=== PATIENT | female | born 1960 | race Caucasian/White ===

== ENCOUNTER 2017-12-05 10:55 | Emergency (ER) | payer MEDICAID ==
[2017-12-05 11:33] VITALS: BP 196/97; PULSE 97; RESP 18; O2SAT 98
[2017-12-05] MEDS ORDERED: LEVO175T2 PO (12:02)
[2017-12-05] MEDS ORDERED: HYDR50CA PO (12:02)
[2017-12-05] MEDS ORDERED: GABA800T PO (12:02)
[2017-12-05] MEDS ORDERED: SERO100T PO (12:02)
[2017-12-05] MEDS ORDERED: IBUP1TAB7 PO (12:02)
[2017-12-05] MEDS ORDERED: SUBO8MIS SL (12:02)
[2017-12-05 14:10] VITALS: BP 178/97; PULSE 98; RESP 18; O2SAT 97
--- NOTE | 2017-12-05 14:23 | PD ---
HPI Chief Complaint: Psychiatric Symptoms Time Seen by Provider: 11:27 Travel History International Travel<30 days: No Contact w/Intl Traveler<30days: No Traveled to known affect area: No History of Present Illness HPI 57-year-old female presents to the emergency department under [place] act as a transfer from [facility]. Patient is done from [place]. She takes Suboxone for pain. She was at [facility] when they advised her they would not be giving her Suboxone refill. She may comment about wanting to kill herself if she did not get this. She states that she did not mean this seriously. She was just angry. Denies suicidal homicidal ideations. States she has history of depression. She has no other symptoms to report. [facility] Past Medical History Depression: Yes ?: Not Social History Tobacco Use: Yes Substance Use: No (Patient denies) Allergies-Medications (Allergen,Severity, Reaction): Coded Allergies: No Known Drug Allergies (Verified Allergy, Unknown, 12/05/17) Per patient Reported Meds & Prescriptions Reported Meds & Active Scripts Active Reported Gabapentin 800 Mg Tab 800 Mg PO TID Ibuprofen 800 Mg Tab 800 Mg PO TID PRN Levothyroxine (Levothyroxine Sodium) 175 Mcg Tab 175 Mcg PO DAILY Seroquel (Quetiapine Fumarate) 100 Mg Tab 100 Mg PO HS Hydroxyzine Pamoate 50 Mg Cap 50 Mg PO TID Suboxone Sublingual Film (Buprenorphine-Naloxone Sublingual Film) 8-2 Mg Film 1 Film SL Unique ID number required: Review of Systems Except as stated in HPI: all other systems reviewed are Neg Physical Exam Narrative GENERAL: Well-nourished female patient, ambulatory and in no acute distress. SKIN: Focused skin assessment warm/dry. HEAD: Atraumatic. Normocephalic. EYES: Pupils equal and round. No scleral icterus. No injection or drainage. ENT: No nasal bleeding or discharge. Mucous membranes pink and moist. NECK: Trachea midline. No JVD. CARDIOVASCULAR: Regular rate and rhythm. No murmur appreciated. RESPIRATORY: No accessory muscle use. Clear to auscultation. Breath sounds equal bilaterally. GASTROINTESTINAL: Abdomen soft, non-tender, nondistended. Hepatic and splenic margins not palpable. MUSCULOSKELETAL: No obvious deformities. No clubbing. No cyanosis. No edema. NEUROLOGICAL: Awake and alert. No obvious cranial nerve deficits. Motor grossly within normal limits. Normal speech. Data Data Last Documented VS Vital Signs Date Time Temp Pulse Resp B/P (MAP) Pulse Ox O2 Delivery O2 Flow Rate FiO2 12/06/17 10:08 111 18 156/98 (117) 97 Room Air 12/06/17 06:15 98.3 Orders Orders Psych Screen (12/05/17 11:27) Hydroxyzine Pamoate (Vistaril) (12/05/17 14:45) Diet Regular Basic (12/05/17 Dinner) Lorazepam (Ativan) (12/05/17 15:15) Hydroxyzine Pamoate (Vistaril) (12/05/17 21:15) Quetiapine (Seroquel) (12/05/17 23:15) Diet Regular Basic (12/06/17 Breakfast) Acetaminophen (Tylenol) (12/06/17 05:45) Diet Regular Basic (12/06/17 Lunch) Ed Discharge Order (12/06/17 13:16) MDM Medical Decision Making Medical Screen Exam Complete: Yes Emergency Medical Condition: Yes Medical Record Reviewed: Yes Differential Diagnosis Mood disorder versus personality disorder versus adjustment reaction disorder versus substance abuse Narrative Course 57 year old female presents to emergency department under [place] act for psychiatric evaluation. Patient lab work and medical clearance was done at [facility]. I have reviewed this. Patient has no acute medical needs and further workup will not be completed at this time. She'll be given Vistaril for anxiety. I told her we'll not be given additional Suboxone here. She is medically cleared to undergo psychiatric screening for further evaluation and disposition. Mental health screening discussed with the patient. Psychiatric screen ordered. 12/06/2017 1315 PT HAS BEEN SEEN AND EVALUATED BY PSYCHIATRY; BA WILL BE LIFTED; WITH NO FURTHER MEDICAL NEEDS, PT IS DISCHARGED AT THIS TIME Diagnosis Primary Impression: Adjustment reaction Qualified Codes: F43.23 - Adjustment disorder with mixed anxiety and depressed mood Condition: Lilia Cabrera Dec 05, 2017 14:23
[2017-12-05 15:05] VITALS: BP 192/106; PULSE 102; RESP 16; O2SAT 98
[2017-12-05] MEDS ORDERED: LORazepam 2 MG TAB PO ONE (15:15)
[2017-12-05 18:32] VITALS: BP 188/93; PULSE 101; RESP 20; O2SAT 97
[2017-12-05 22:26] VITALS: BP_SYST 170; BP_SYST 186; BP_DIAS 101; BP_DIAS 90; PULSE 97; RESP 17; TEMP 98.1; O2SAT 99
[2017-12-05] MEDS ORDERED: QUEtiapine FUMARATE 100 MG TAB PO ONE (23:15)
[2017-12-06 02:19] VITALS: BP 169/85; PULSE 98; RESP 18; TEMP 98.8; O2SAT 98
[2017-12-06] MEDS ORDERED: ACETAMINOPHEN 325 MG TAB PO ONE (05:45)
[2017-12-06 06:15] VITALS: BP 152/92; PULSE 97; RESP 17; TEMP 98.3; O2SAT 97
[2017-12-06 10:08] VITALS: BP 156/98; PULSE 111; RESP 18; O2SAT 97
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
== END 2017-12-06 15:05 | disposition home or self-care (01) ==
LOC: NEPJ 10:55
DX: F43.23 Adjustment disorder with mixed anxiety and depressed mood (principal); Z72.0 Tobacco use
CPT/HCPCS: 99284